=== PATIENT | male | born 1945 | race Caucasian/White ===

== ENCOUNTER 2018-11-09 19:19 | Emergency (ER) | payer OTHER ==
[~2018-11-09] VITALS: Ht 172.7 cm; Wt 76.2 kg
[2018-11-09] MEDS ORDERED: AVAPRO75 MG (19:30)
[2018-11-09] MEDS ORDERED: TOPROL XL50 MG (19:30)
[2018-11-09] MEDS ORDERED: GLIPIZIDE XL2.5 MG (19:30)
[2018-11-09] MEDS ORDERED: CARDURA1 MG (19:30)
[2018-11-09] MEDS ORDERED: FORTAMET1000 MG (19:31)
== END 2018-11-09 21:50 | disposition home or self-care (01) ==
LOC: ER 19:19
DX: R07.89 Other chest pain (principal); E11.65 Type 2 diabetes mellitus with hyperglycemia

== ENCOUNTER 2019-08-20 05:29 | Emergency (ER) | payer OTHER ==
[~2019-08-20] VITALS: Ht 172.7 cm; Wt 73.5 kg
[~2019-08-20 05:29] MED LIST: AVAPRO75 MG; CARDURA1 MG; FORTAMET1000 MG; GLIPIZIDE XL2.5 MG; TOPROL XL50 MG
[2019-08-20] MEDS ORDERED: SIMVASTATIN5 MG (06:01)
== END 2019-08-20 10:29 | disposition home or self-care (01) ==
LOC: ER 05:29
DX: R42 Dizziness and giddiness (principal)

== ENCOUNTER → 2021-04-14 | Emergency (ER) | payer OTHER ==
[~2021-04-14] VITALS: Ht 172.7 cm; Wt 76.2 kg
[~2021-04-14] MED LIST changes: +DIOVAN160 M1 PO; +LIPITOR20 MG PO; +SIMVASTATIN5 MG
== END | disposition home or self-care (01) ==
LOC: ER 07:52 → CPU-OBS 07:58
DX: R07.89 Other chest pain (principal)

== ENCOUNTER 2023-11-19 21:16 | Inpatient (IN) | payer OTHER ==
[~2023-11-19] VITALS: Ht 264.2 cm; Wt 69.9 kg
[2023-11-19 21:58] LABS: HEMOGLOBIN 13.7 g/dL (13-16.00); MEAN CELL VOLUME 89.2 fL (80.0-100.00); MEAN CORPUSCULAR HEMOGLOBIN 30.7 pg (27.00-32.0); MEAN CORPUSCULAR HGB CONC 34.4 g/dl (32.0-36.0); PLATELET COUNT 199 K/uL (150-450); RED BLOOD COUNT 4.48 M/uL (4.00-6.00); RED CELL DISTRIBUTION WIDTH 14.5 % (11.5-14.5)
[2023-11-19] MEDS ORDERED: ENALAPRILAT DIHYDRATE 1.25 MG/ML VIAL IV ONE (22:00)
[2023-11-19] MEDS ORDERED: cloNIDine HCL 0.2 MG TABLET PO ONE (22:00)
[2023-11-19] MEDS ORDERED: KETOROLAC TROMETHAMINE 60 MG VIAL IM ONE (22:00)
[2023-11-19 22:16] LABS: ALBUMIN 3.7 gm/dL (3.4-5.0); BILIRUBIN TOTAL 0.31 mg/dL (0.3-1.2); CALCIUM 9.4 mg/dL (8.5-10.1); CREATININE SERUM 1.14 mg/dL (0.70-1.30); GFR 61.81; GLOBULINA 3.2 G/DL (2.4-3.5); POTASSIUM 4.13 mEq/L (3.5-5.1); TOTAL PROTEIN 6.9 gm/dL (6.4-8.2)
[2023-11-19] MEDS ORDERED: ASPIRIN 325 MG TABLET PO ONE (22:45)
[2023-11-19] MEDS ORDERED: NITROGLYCERIN IN 5 % DEXTROSE 250 ML IV SCH ×2 (22:45→23:30)
[2023-11-19] MEDS ORDERED: TICAGRELOR 90 MG TABLET PO ONE (22:45)
[2023-11-19] MEDS ORDERED: ONDANSETRON HCL 4 MG in 0.9 % SODIUM CHLORIDE 50 ML IV PRN (23:30)
[2023-11-19] MEDS ORDERED: DEXTROSE 50 % IN WATER 0.5 G/ML DISP.SYRIN IV PRN (23:30)
[2023-11-19] MEDS ORDERED: ACETAMINOPHEN 500 MG GEL..CAP PO PRN (23:30)
[2023-11-19] MEDS ORDERED: INSULIN LISPRO 1,000 UNIT/10 ML UNITS SUBCUTANEO PRN (23:30)
[2023-11-20 07:44] LABS: URINE APPEARANCE Clear; URINE BILIRRUBIN Negative (NEGATIVE); URINE BLOOD Negative; URINE COLOR Yellow; URINE GLUCOSE Negative (NEGATIVE); URINE LEUKOCYTE Negative; URINE NITRATE Negative; URINE UROBILINOGEN 0.2 E.U./dl
[2023-11-20 07:46] LABS: HEMATOCRIT 40.8 % (39.0-48.0); HEMOGLOBIN 13.9 g/dL (13-16.00); MEAN CELL VOLUME 92.2 fL (80.0-100.00); MEAN CORPUSCULAR HEMOGLOBIN 31.5 pg (27.00-32.0); MEAN CORPUSCULAR HGB CONC 34.1 g/dl (32.0-36.0); PLATELET COUNT 200 K/uL (150-450); RED BLOOD COUNT 4.43 M/uL (4.00-6.00); RED CELL DISTRIBUTION WIDTH 14.3 % (11.5-14.5)
[2023-11-20 07:48] LABS: URINE BACTERIA 396.8 uL (0.0-1933); URINE EPITHELIAL CELLS 9.8 uL (0.0-38.8); URINE RBC 3.3 uL (0.0-20.8); URINE WBC 7.5 uL (0.0-23.2)
[2023-11-20 07:55] LABS: URINE PROTEIN 100 (NEGATIVE)
[2023-11-20 08:01] LABS: ERYTHROCYTE SEDIMENTATION RATE 2 mm/hr
[2023-11-20 08:31] LABS: ALBUMIN 3.7 gm/dL (3.4-5.0); ALKALINE PHOSPHATASE 58 U/L (50-136); ALT/SGPT 38 U/L (12-78); ANION GAP 7 (10.0-20.0); AST/SGOT 18 U/L (15-37); BILIRUBIN TOTAL 0.39 mg/dL (0.3-1.2); BILIRUBIN,CONJUGATED < 0.10 mg/dL (0.0-0.2); BILIRUBIN,UNCONJUGATED 0.29 mg/dL (0.0-0.6); BLOOD UREA NITROGEN 18 mg/dL (7-18); BUN CREA RATIO 16 (7.0-25.0); CALCIUM 8.9 mg/dL (8.5-10.1); CARBON DIOXIDE 31 mEq/L (21-32); CHLORIDE 104 mmol/L (98-107); CHOL HDL RATIO 4.4 (0-5.0); CHOLESTEROL 131 mg/dL (0-200); CREATININE SERUM 1.11 mg/dL (0.70-1.30); GFR 63.74; GLOBULINA 2.7 G/DL (2.4-3.5); GLUCOSE FASTING 186 mg/dL (65-100); HDL 30 mg/dl (40-60); LDL 72 mg/dl (0-130); OSMOLALITY SERUM 282 MOSM/KG (275-295); POTASSIUM 4.39 mEq/L (3.5-5.1); SODIUM 138 mmol/L (136-145); TOTAL PROTEIN 6.4 gm/dL (6.4-8.2); TRIGLYCERIDES 146 mg/dL (0-150); VLDL 29 (0-39)
[2023-11-20 08:41] LABS: C-REACTIVE PROTEIN < 0.29 MG/DL (0.00-0.29)
[2023-11-20] MEDS ORDERED: GLIPIZIDE 10 MG TABLET PO SCH (09:00)
[2023-11-20] MEDS ORDERED: ENOXAPARIN SODIUM 40 MG/0.4 ML SYRINGE SUBCUTANEO SCH (09:00)
[2023-11-20] MEDS ORDERED: LOSARTAN POTASSIUM 100 MG TABLET PO SCH (09:00)
[2023-11-20] MEDS ORDERED: ASPIRIN 81 MG TABLET.EC PO SCH (09:00)
[2023-11-20] MEDS ORDERED: ATORVASTATIN CALCIUM 40 MG TABLET PO SCH (09:00)
[2023-11-20] MEDS ORDERED: FAMOTIDINE/PF 20 MG in 0.9 % SODIUM CHLORIDE 8 ML IV PUSH SCH (09:00)
[2023-11-20] MEDS ORDERED: METOPROLOL SUCCINATE 50 MG TAB.SR.24H PO SCH (09:00)
[2023-11-20] MEDS ORDERED: DOXAZOSIN MESYLATE 2 MG TABLET PO SCH (09:00)
[2023-11-20 09:29] LABS: INR 0.98; PARTIAL THROMBOPLASTIN TIME 25.8 SECONDS (22.0-34.0); PROTHROMBIN TIME 10.3 SECONDS (9.0-11.5)
[2023-11-20 09:39] LABS: ABG PH 7.402 (7.35-7.45); ABG PO2 78.6 mmHg (80-100); ABG pCO2 41.5 mmHg (35-45); BASE EXCESS 0.4 mmol/l; BICARBONATE 25.3 mmol/l (23-25); SaO2 95.5 %; Tco2 26.5 mmol/l; allen test SATISFACTORY; puncture site RADIAL RIGHT
[2023-11-20 09:40] LABS: o2 21 %
[2023-11-20 10:16] LABS: INR 1.01; PARTIAL THROMBOPLASTIN TIME 25.1 SECONDS (22.0-34.0); PROTHROMBIN TIME 10.6 SECONDS (9.0-11.5)
[2023-11-21] MEDS ORDERED: GLIPIZIDE 10 MG TABLET PO SCH (10:29)
== END 2023-11-23 14:47 | disposition home or self-care (01) | DRG 282 ==
LOC: ER 21:17 → MEDJ 23:31
PROVIDERS: General Practice; Internal Medicine; ADMIT Internal Medicine; ATTEND Internal Medicine
PROC: B24BZZZ Ultrasonography of Heart with Aorta (ICD-10-PCS; principal; 2023-11-20)
PROC: 4A12X4Z Monitoring of Cardiac Electrical Activity, External Approach (ICD-10-PCS; 2023-11-20)
DX: I21.4 Non-ST elevation (NSTEMI) myocardial infarction (principal); I11.9 Hypertensive heart disease without heart failure; E11.8 Type 2 diabetes mellitus with unspecified complications; Z79.4 Long term (current) use of insulin; E78.5 Hyperlipidemia, unspecified

== ENCOUNTER 2024-03-22 18:55 | Emergency (ER) | payer OTHER ==
[~2024-03-22] VITALS: Ht 172.7 cm; Wt 74.8 kg
[2024-03-22] MEDS ORDERED: RINGERS SOLUTION,LACTATED 1,000 ML IV STA (20:37)
[2024-03-22] MEDS ORDERED: INSULIN REGULAR, HUMAN 1,000 UNIT/10 ML UNITS SUBCUTANEO STA (20:39)
[2024-03-22 21:04] LABS: HEMATOCRIT 37.6 % (39.0-48.0); HEMOGLOBIN 13.1 g/dL (13-16.00); MEAN CELL VOLUME 90.8 fL (80.0-100.00); MEAN CORPUSCULAR HEMOGLOBIN 31.6 pg (27.00-32.0); MEAN CORPUSCULAR HGB CONC 34.8 g/dl (32.0-36.0); PLATELET COUNT 176 K/uL (150-450); RED BLOOD COUNT 4.14 M/uL (4.00-6.00); RED CELL DISTRIBUTION WIDTH 13.9 % (11.5-14.5)
[2024-03-22 21:26] LABS: INR 1.03; PARTIAL THROMBOPLASTIN TIME 23.7 SECONDS (22.0-34.0); PROTHROMBIN TIME 10.8 SECONDS (9.0-11.5)
[2024-03-22 21:31] LABS: ALBUMIN 3.4 gm/dL (3.4-5.0); BILIRUBIN TOTAL 0.22 mg/dL (0.3-1.2); CALCIUM 8.7 mg/dL (8.5-10.1); CREATININE SERUM 1.28 mg/dL (0.70-1.30); GFR 53.94; GLOBULINA 2.9 G/DL (2.4-3.5); POTASSIUM 4.21 mEq/L (3.5-5.1); TOTAL PROTEIN 6.3 gm/dL (6.4-8.2)
[2024-03-23 01:27] LABS: URINE APPEARANCE Clear; URINE BILIRRUBIN Negative (NEGATIVE); URINE BLOOD Negative; URINE COLOR Yellow; URINE LEUKOCYTE Negative; URINE NITRATE Negative
[2024-03-23 01:32] LABS: URINE BACTERIA 79.3 uL (0.0-1933); URINE EPITHELIAL CELLS 4.3 uL (0.0-38.8); URINE RBC 2.4 uL (0.0-20.8); URINE WBC 2.4 uL (0.0-23.2)
[2024-03-23 02:20] LABS: URINE GLUCOSE 250 MG/DL (NEGATIVE); URINE PROTEIN 100 (NEGATIVE)
[2024-03-23] MEDS ORDERED: ISOSORBIDE MONO30 MG PO (02:48)
== END 2024-03-23 03:43 ==
LOC: ER 18:56
DX: E86.0 Dehydration (principal); R53.1 Weakness; Z20.822 Contact with and (suspected) exposure to COVID-19